=== PATIENT | male | born 1995 | race African-American/Black ===

== ENCOUNTER 2017-04-14 14:04 | Emergency (ER) | payer MEDICAID | END 2017-04-14 17:02 | disposition home or self-care (01) | LOC: D.ER 14:04 | DX: J01.90 Acute sinusitis, unspecified (principal); F17.200 Nicotine dependence, unspecified, uncomplicated ==

== ENCOUNTER 2017-04-15 17:28 | Emergency (ER) | payer MEDICAID | END 2017-04-15 19:53 | disposition home or self-care (01) | LOC: D.ER 17:28 | DX: J01.90 Acute sinusitis, unspecified (principal); J20.9 Acute bronchitis, unspecified ==

== ENCOUNTER 2017-07-24 11:16 | Emergency (ER) | payer MEDICAID ==
[~2017-07-24] VITALS: Ht 182.9 cm; Wt 83.9 kg
[2017-07-24] MEDS ORDERED: HALDOL5 MG (11:49)
[2017-07-24] MEDS ORDERED: BENZTROPINE MESY2 MG PO (11:49)
[2017-07-24] MEDS ORDERED: TETRACYCLINE H250 MG (11:51)
[2017-07-24 12:27] LABS: APPEARANCE CLEAR (CLEAR); BILIRUBIN NEGATIVE (NEGATIVE); COLOR DK YELLOW (YELLOW); GLUCOSE NEGATIVE (NEGATIVE); KETONE SMALL mg/dL (NEGATIVE); NITRITE NEGATIVE (NEGATIVE); PROTEIN NEGATIVE (NEGATIVE); UROBILINOGEN NORMAL (NORMAL)
[2017-07-24 12:28] LABS: BACTERIA FEW /hpf (NONE SEEN); EPITHELIAL CELLS 0-5 /hpf (0-5); MUCUS >1+ /lpf (NONE SEEN); RED CELLS - URINE 0-5 /hpf (0-5); WHITE CELLS - URINE 0-5 /hpf (0-5)
[2017-07-24 12:37] LABS: BASOPHILS 0.5 % (0-2); EOSINOPHILS 2.7 % (0-7); HEMATOCRIT 47.3 % (42.0-54.0); HEMOGLOBIN 16.1 g/dL (13.5-17.5); IMMATURE GRANULOCYTES 0.4 % (0-5); LYMPHOCYTES 18.5 % (15-50); MCH 31.3 pg (26.0-34.0); MCV 91.8 fL (80.0-100.0); MEAN PLATELET VOLUME 10.5 fL (7.4-10.4); MONOCYTES 4.1 % (2-11); NEUTROPHILS 73.8 % (40-80); PLATELET COUNT 246 10x3/uL (130-400); RBC 5.15 10x6/uL (4.20-6.10); WBC 8.5 10x3/uL (4.8-10.8)
[2017-07-24 12:44] LABS: UDS - AMPHET NEGATIVE QUAL (NEGATIVE); UDS - BARB NEGATIVE QUAL (NEGATIVE); UDS - BENZO NEGATIVE QUAL (NEGATIVE); UDS - COCAINE NEGATIVE QUAL (NEGATIVE); UDS - OPIATE NEGATIVE QUAL (NEGATIVE); UDS - PCP NEGATIVE QUAL (NEGATIVE); UDS - THC POSITIVE QUAL (NEGATIVE)
[2017-07-24 13:14] LABS: ALBUMIN 3.8 g/dL (3.4-5.0); ALKALINE PHOSPHATASE 95 U/L (46-116); ALT (SGPT) 15 U/L (10-68); BILIRUBIN - TOTAL 0.55 mg/dL (0.2-1.3); CALC OSMOLALITY 280 mosm/kg (275-300); CALCIUM 9.4 mg/dL (8.5-10.1); CARBON DIOXIDE 27.5 mmol/L (21.0-32.0); CHLORIDE - SERUM 103 mmol/L (98-107); CREATININE - SERUM 1.1 mg/dL (0.6-1.3); GLUCOSE 151 mg/dL (74-106); POTASSIUM - SERUM 3.7 mmol/L (3.5-5.1); PROTEIN - SERUM 8.4 g/dL (6.4-8.2); SODIUM 140 mmol/L (136-145); UREA NITROGEN 10 mg/dL (7-18); eGFR NON AFRICAN AMERICAN 89 mL/min (90-120)
[2017-07-24 16:46] VITALS: BP 113/73
== END 2017-07-24 16:46 | disposition home or self-care (01) ==
LOC: D.ER 11:16
PROVIDERS: Emergency Medicine
DX: F23 Brief psychotic disorder (principal); Z91.14 Patient's other noncompliance with medication regimen; Z86.59 Personal history of other mental and behavioral disorders; F17.200 Nicotine dependence, unspecified, uncomplicated

== ENCOUNTER 2017-09-11 13:29 | Emergency (ER) | payer MEDICAID ==
[~2017-09-11] VITALS: Ht 182.9 cm; Wt 90.9 kg
[~2017-09-11 13:29] MED LIST: BENZTROPINE MESY2 MG PO; HALDOL5 MG; TETRACYCLINE H250 MG
[2017-09-11 13:51] VITALS: Ht 182.9 cm; Wt 90.9 kg
[2017-09-11 14:23] LABS: BASOPHILS 0.5 % (0-2); EOSINOPHILS 9.8 % (0-7); HEMOGLOBIN 16.4 g/dL (13.5-17.5); IMMATURE GRANULOCYTES 0.2 % (0-5); LYMPHOCYTES 19.1 % (15-50); MCH 31.8 pg (26.0-34.0); MCHC 34.2 g/dL (31.0-37.0); MCV 93.2 fL (80.0-100.0); MEAN PLATELET VOLUME 10.7 fL (7.4-10.4); MONOCYTES 9.5 % (2-11); NEUTROPHILS 60.9 % (40-80); PLATELET COUNT 248 10x3/uL (130-400); RBC 5.15 10x6/uL (4.20-6.10); RDW 13.7 % (11.5-14.5); WBC 10.7 10x3/uL (4.8-10.8)
[2017-09-11 14:28] LABS: APPEARANCE CLEAR (CLEAR); BILIRUBIN NEGATIVE (NEGATIVE); COLOR DK YELLOW (YELLOW); GLUCOSE NEGATIVE (NEGATIVE); KETONE NEGATIVE (NEGATIVE); NITRITE NEGATIVE (NEGATIVE); PROTEIN NEGATIVE (NEGATIVE); SPECIFIC GRAVITY 1.015 (1.005-1.020)
[2017-09-11 14:30] LABS: UDS - AMPHET NEGATIVE QUAL (NEGATIVE); UDS - BARB NEGATIVE QUAL (NEGATIVE); UDS - BENZO NEGATIVE QUAL (NEGATIVE); UDS - COCAINE NEGATIVE QUAL (NEGATIVE); UDS - OPIATE NEGATIVE QUAL (NEGATIVE); UDS - PCP NEGATIVE QUAL (NEGATIVE); UDS - THC POSITIVE QUAL (NEGATIVE)
[2017-09-11 14:37] LABS: ALBUMIN 3.9 g/dL (3.4-5.0); ALKALINE PHOSPHATASE 93 U/L (46-116); ALT (SGPT) 48 U/L (10-68); BILIRUBIN - TOTAL 0.65 mg/dL (0.2-1.3); CALC OSMOLALITY 276 mosm/kg (275-300); CALCIUM 8.9 mg/dL (8.5-10.1); CHLORIDE - SERUM 104 mmol/L (98-107); POTASSIUM - SERUM 3.9 mmol/L (3.5-5.1); SODIUM 140 mmol/L (136-145); UREA NITROGEN 7 mg/dL (7-18); eGFR NON AFRICAN AMERICAN > 90 mL/min (90-120)
[2017-09-11 14:49] LABS: GLUCOSE 91 mg/dL (74-106)
[2017-09-11 18:52] VITALS: BP 141/089
== END 2017-09-11 18:54 ==
LOC: D.ER 13:29
PROVIDERS: Family Medicine
DX: R45.851 Suicidal ideations (principal); F17.200 Nicotine dependence, unspecified, uncomplicated; Z86.59 Personal history of other mental and behavioral disorders

== ENCOUNTER 2018-07-16 06:27 | Emergency (ER) | payer MEDICAID ==
[~2018-07-16] VITALS: Ht 182.9 cm; Wt 86.4 kg
[2018-07-16 06:32] VITALS: Ht 182.9 cm; Wt 86.4 kg
[2018-07-16] MEDS ORDERED: ADDERALL 20 MG20 M1 (06:33)
[2018-07-16] MEDS ORDERED: BUPROPION HCL150 M1 (06:33)
[2018-07-16 06:59] LABS: BASOPHILS 0.4 % (0-2); EOSINOPHILS 8.2 % (0-7); HEMATOCRIT 44.9 % (42.0-54.0); HEMOGLOBIN 15.5 g/dL (13.5-17.5); IMMATURE GRANULOCYTES 0.2 % (0-5); LYMPHOCYTES 21.6 % (15-50); MCH 31.4 pg (26.0-34.0); MCHC 34.5 g/dL (31.0-37.0); MCV 91.1 fL (80.0-100.0); MEAN PLATELET VOLUME 10.6 fL (7.4-10.4); MONOCYTES 8.1 % (2-11); NEUTROPHILS 61.5 % (40-80); PLATELET COUNT 277 10x3/uL (130-400); RBC 4.93 10x6/uL (4.20-6.10); RDW 13.4 % (11.5-14.5); WBC 11.9 10x3/uL (4.8-10.8)
[2018-07-16 07:05] LABS: AMORPHOUS SEDIMENT <1+ /lpf (NONE SEEN); APPEARANCE CLEAR (CLEAR); BILIRUBIN NEGATIVE (NEGATIVE); COLOR YELLOW (YELLOW); EPITHELIAL CELLS 0-5 /hpf (0-5); GLUCOSE NEGATIVE (NEGATIVE); KETONE NEGATIVE (NEGATIVE); NITRITE NEGATIVE (NEGATIVE); PROTEIN NEGATIVE (NEGATIVE); RED CELLS - URINE 0-5 /hpf (0-5); UROBILINOGEN NORMAL (NORMAL)
[2018-07-16 07:28] LABS: UDS - AMPHET NEGATIVE QUAL (NEGATIVE); UDS - BARB NEGATIVE QUAL (NEGATIVE); UDS - BENZO NEGATIVE QUAL (NEGATIVE); UDS - COCAINE NEGATIVE QUAL (NEGATIVE); UDS - OPIATE NEGATIVE QUAL (NEGATIVE); UDS - PCP NEGATIVE QUAL (NEGATIVE); UDS - THC POSITIVE QUAL (NEGATIVE)
[2018-07-16 07:30] LABS: ALBUMIN 3.9 g/dL (3.4-5.0); ALKALINE PHOSPHATASE 99 U/L (46-116); ALT (SGPT) 20 U/L (10-68); CALC OSMOLALITY 279 mosm/kg (275-300); CALCIUM 9.4 mg/dL (8.5-10.1); CHLORIDE - SERUM 103 mmol/L (98-107); CREATININE - SERUM 1.1 mg/dL (0.6-1.3); GLUCOSE 96 mg/dL (74-106); POTASSIUM - SERUM 3.7 mmol/L (3.5-5.1); PROTEIN - SERUM 8.6 g/dL (6.4-8.2); SODIUM 140 mmol/L (136-145); UREA NITROGEN 15 mg/dL (7-18); eGFR NON AFRICAN AMERICAN 88 mL/min (90-120)
--- NOTE | 2018-07-16 07:35 | NUR ---
DR. JONES NOTIFIED AND 1:1 SITTER OBSERVATION ORDERED. SITTER AT BEDSIDE. NOTIFIED CHARGE NURSE AND ATTENDING IN REGARDS TO ASSESSMENT FINDINGS. RESOURCES GIVEN TO PT AND SAFETY PLAN INITIATED.
[2018-07-16 15:34] VITALS: BP 127/86
== END 2018-07-16 16:02 ==
LOC: D.ER 06:27
PROVIDERS: Family Medicine
DX: R45.851 Suicidal ideations (principal); F32.9 Major depressive disorder, single episode, unspecified

== ENCOUNTER 2020-05-14 01:16 | Emergency (ER) | payer MEDICAID ==
[~2020-05-14] VITALS: Ht 182.9 cm; Wt 79.5 kg
[~2020-05-14 01:16] MED LIST changes: +ADDERALL 20 MG20 M1; +BUPROPION HCL150 M1
[2020-05-14 01:22] VITALS: Ht 182.9 cm; Wt 79.5 kg
[2020-05-14] MEDS ORDERED: FLOVENT HFA 11012 GM INH (02:19)
[2020-05-14] MEDS ORDERED: STERAPRED DS 1010 MG PO (02:19)
[2020-05-14 02:50] VITALS: BP 148/84
== END 2020-05-14 02:50 | disposition home or self-care (01) ==
LOC: D.ER 01:16
DX: J98.01 Acute bronchospasm (principal); Z72.0 Tobacco use

== ENCOUNTER 2020-05-27 18:20 | Emergency (ER) | payer OTHER ==
[~2020-05-27] VITALS: Ht 182.9 cm; Wt 81.8 kg
[~2020-05-27 18:20] MED LIST changes: +FLOVENT HFA 11012 GM INH; +STERAPRED DS 1010 MG PO
[2020-05-27 18:29] VITALS: Ht 182.9 cm; Wt 81.8 kg
[2020-05-27] MEDS ORDERED: ZYPREXA10 MG PO (18:31)
[2020-05-27] MEDS ORDERED: NALTREXONE HCL50 MG PO (18:31)
[2020-05-27] MEDS ORDERED: STRATTERA40 MG PO (18:31)
[2020-05-27] MEDS ORDERED: ZOLOFT100 MG PO (18:32)
[2020-05-27 19:02] LABS: BASOPHILS 0.4 % (0-2); EOSINOPHILS 5.6 % (0-7); HEMATOCRIT 43.4 % (42.0-54.0); HEMOGLOBIN 14.7 g/dL (13.5-17.5); IMMATURE GRANULOCYTES 0.2 % (0-5); LYMPHOCYTE ABS# 2.23 10x3/uL (1.32-3.57); LYMPHOCYTES 18.1 % (15-50); MCH 31.8 pg (26.0-34.0); MCHC 33.9 g/dL (31.0-37.0); MCV 93.9 fL (80.0-100.0); MEAN PLATELET VOLUME 10.8 fL (7.4-10.4); NEUTROPHIL ABS# 8.31 10x3/uL (1.78-5.38); NEUTROPHILS 67.7 % (40-80); RBC 4.62 10x6/uL (4.20-6.10); RDW 13.3 % (11.5-14.5); WBC 12.3 10x3/uL (4.8-10.8)
[2020-05-27 19:16] LABS: CALC OSMOLALITY 272 mosm/kg (275-300); CALCIUM 8.2 mg/dL (8.5-10.1); CARBON DIOXIDE 24.1 mmol/L (21.0-32.0); CHLORIDE - SERUM 103 mmol/L (98-107); CREATININE - SERUM 0.9 mg/dL (0.6-1.3); GLUCOSE 100 mg/dL (74-106); POTASSIUM - SERUM 3.9 mmol/L (3.5-5.1); SODIUM 137 mmol/L (136-145); UREA NITROGEN 10 mg/dL (7-18); eGFR NON AFRICAN AMERICAN > 90 mL/min (90-120)
[2020-05-27 19:18] LABS: PLATELET COUNT 141 10x3/uL (130-400)
[2020-05-27 19:20] LABS: ALBUMIN 3.5 g/dL (3.4-5.0); ALKALINE PHOSPHATASE 94 U/L (30-120); ALT (SGPT) 26 U/L (10-68); BILIRUBIN - TOTAL 0.15 mg/dL (0.2-1.3); PROTEIN - SERUM 7.2 g/dL (6.4-8.2)
[2020-05-27 19:35] LABS: UDS - AMPHET NEGATIVE QUAL (NEGATIVE); UDS - BARB NEGATIVE QUAL (NEGATIVE); UDS - BENZO NEGATIVE QUAL (NEGATIVE); UDS - COCAINE NEGATIVE QUAL (NEGATIVE); UDS - OPIATE NEGATIVE QUAL (NEGATIVE); UDS - PCP NEGATIVE QUAL (NEGATIVE); UDS - THC NEGATIVE QUAL (NEGATIVE)
[2020-05-27 19:44] LABS: BILIRUBIN NEGATIVE (NEGATIVE); KETONE NEGATIVE (NEGATIVE); NITRITE NEGATIVE (NEGATIVE); UROBILINOGEN NORMAL mg/dL (< 2)
--- NOTE | 2020-05-27 20:44 | NUR ---
DR JONES NOTIFIED AND SITTER ORDERED. SITTER AT BEDSIDE.NOTIFIED CHARGE NURSE AND ATTENDING IN REGARDS TO ASSESSMENT FINDINGS. RESOURCES GIVEN TO PT AND SAFETY PLAN INITIATED.
[2020-05-27 21:56] LABS: SARS-CoV-2 ANTIGEN NEGATIVE- SARS-COV-2 (NEGATIVE)
[2020-05-28 04:10] VITALS: BP 141/89
== END 2020-05-28 04:13 | disposition other institution (70) ==
LOC: D.ER 18:20
PROVIDERS: Family Medicine
DX: R45.851 Suicidal ideations (principal)